=== PATIENT | male | born 1955 | race Hispanic/Latino ===

== ENCOUNTER 2016-12-29 15:38 | Emergency (ER) | payer OTHER ==
[2016-12-29 16:24] LABS: Bilirubin Negative (Negative); Blood, Urine Negative (Negative); Glucose, Urine (Dipstick) Negative (Negative); Ketone, Urine Negative (Negative); Nitrite Negative (Negative); Protein, Urine (Dipstick) Negative (Neg-Trace); Urobilinogen 0.2 mg/dL (0.2-1.0)
[2016-12-29] MEDS ORDERED: Ketorolac Tromethamine 30 MG/ML VIAL ONE (16:44)
== END 2016-12-29 17:07 | disposition home or self-care (01) ==
LOC: SCSER 15:38
DX: M54.5 Low back pain (principal); I10 Essential (primary) hypertension; E11.9 Type 2 diabetes mellitus without complications; F41.9 Anxiety disorder, unspecified; F32.9 Major depressive disorder, single episode, unspecified
CPT/HCPCS: 81003; 96372; J1885

== ENCOUNTER 2018-05-05 15:31 | Emergency (ER) | payer OTHER ==
[2018-05-05] MEDS ORDERED: Ketorolac Tromethamine 30 MG/ML VIAL ONE (16:07)
--- NOTE | 2018-05-05 16:30 | RAD ---
RIGHT SHOULDER THREE VIEWS: History: Fall. Right shoulder injury. FINDINGS: Acromioclavicular and glenohumeral alignment are maintained. With moderate osteophytosis. Fragmented well corticated enthesophytes are present along the lateral margin of the proximal humeral shaft and the upper medial margin. These may be related to chronic or old tendinous avulsion type injuries. No acute fracture, dislocation, or aggressive osseous erosions. IMPRESSION: Degenerative changes of the acromioclavicular and glenohumeral joint and other chronic type findings as detailed above. No acute osseous abnormalities are demonstrated. POS: RAQUEL
== END 2018-05-05 16:27 | disposition home or self-care (01) ==
LOC: SCSER 15:31
DX: S40.011A Contusion of right shoulder, initial encounter (principal); E11.9 Type 2 diabetes mellitus without complications; I10 Essential (primary) hypertension; F41.9 Anxiety disorder, unspecified; F32.9 Major depressive disorder, single episode, unspecified; Z79.899 Other long term (current) drug therapy; Z79.84 Long term (current) use of oral hypoglycemic drugs; W01.0XXA Fall on same level from slipping, tripping and stumbling without subsequent striking against object, initial encounter
CPT/HCPCS: 96372; J1885

== ENCOUNTER 2018-07-28 06:15 | Emergency (ER) | payer OTHER ==
[2018-07-28] MEDS ORDERED: Ondansetron PF 4 MG/2 ML Vial ONE (06:36)
[2018-07-28 06:49] LABS: #Basophils 0.2 thou/uL (0.0-0.2); #Eosinphils 0.4 thou/uL (0.0-0.7); #Lymphocytes 4.7 thou/uL (1.20-3.40); #Neutrophils 5.8 thou/uL (1.40-6.50); %Basophils 1.3 % (0.0-1.0); %Eosinophils 3.7 % (0.0-10.0); %Lymphocytes 38.6 % (21.0-51.0); %Neutrophils 48.3 % (42.0-75.0); Hemoglobin 14.6 g/dL (14.0-18.0); Mean Corpuscular HGB CONC 31.4 g/dL (32.0-36.0); Mean Corpuscular Volume 95.3 fL (78.0-98.0); Mean Platelet Volume 7.6 fL (7.4-10.4); Platelet Count 353 thou/uL (130-400); RBC Distribution Width 12.2 % (11.5-14.5); Red Blood Cell (RBC) Count 4.89 mill/uL (4.70-6.10)
[2018-07-28 07:10] LABS: ALT (SGPT) 21 U/L (8-55); AST (SGOT) 20 U/L (5-34); Albumin 4.8 g/dL (3.5-5.0); Alkaline Phosphatase 106 U/L (40-150); Anion Gap 16 mmol/L (10-20); BUN (Urea Nitrogen) 29 mg/dL (8.4-25.7); Calc. Creatinine Clearance 0 mL/min (70-130); Calcium 10.1 mg/dL (7.8-10.44); Carbon Dioxide 25 mmol/L (22-29); Chloride 101 mmol/L (98-107); Estimated GFR-MDRD 45; Globulin 3.8 g/dL (2.4-3.5); Glucose 144 mg/dL (70-105); Potassium 4.1 mmol/L (3.5-5.1); Protein, Total 8.6 g/dL (6.0-8.3); Sodium 138 mmol/L (136-145)
--- NOTE | 2018-07-28 07:30 | RAD ---
EXAM: Single view of the chest HISTORY: Chest pain COMPARISON: 07/27/2013 FINDINGS: Single view of the chest shows a normal sized cardiomediastinal silhouette. There is no carolyne dence of consolidation, mass, or pleural effusion. Degenerative changes are seen in the spine. IMPRESSION: No evidence of acute cardiopulmonary disease
--- NOTE | 2018-07-31 14:36 | EKG ---
Test Reason : Blood Pressure : / mmHG Vent. Rate : 090 BPM Atrial Rate : 090 BPM P-R Int : 156 ms QRS Dur : 084 ms QT Int : 368 ms P-R-T Axes : 049 -13 082 degrees QTc Int : 450 ms Normal sinus rhythm Normal ECG Confirmed by TOSHA DELUNA D.O. ([id number]), field map editor LEI TSANG ([id number] on 07/31/2018 2:35:56 PM Referred By: Confirmed By:TOSHA DELUNA D.O.
== END 2018-07-28 09:12 | disposition home or self-care (01) ==
LOC: ERS 06:15
DX: K29.70 Gastritis, unspecified, without bleeding (principal); I10 Essential (primary) hypertension; F41.9 Anxiety disorder, unspecified; F32.9 Major depressive disorder, single episode, unspecified; Z79.84 Long term (current) use of oral hypoglycemic drugs; Z79.899 Other long term (current) drug therapy
CPT/HCPCS: 71045; 80053; 84484; 85025; 93005; 96361; 96374; J2405

== ENCOUNTER 2020-01-23 09:59 | Outpatient (CLI) | payer OTHER ==
--- NOTE | 2020-01-23 10:28 | ULT ---
ULTRASOUND ABDOMEN: HISTORY: Right upper quadrant pain FINDINGS: The liver demonstrates increased echogenicity consistent with fatty infiltration. No focal mass or ab normal biliary duct dilatation is seen. The spleen, gallbladder, pancreas, kidneys and visualized portions of the aorta and IVC appear normal. The common duct measures 6mm in diameter. No free fluid is seen. IMPRESSION: Fatty liver.
--- NOTE | 2020-01-23 10:40 | RAD ---
XR Chest Pa Lat STANDARD History: Chest pain Comparison: Radiograph July 2018 Findings: Lungs are mildly hypoinflated with accentuated cardiac silhouette and pulmonary vasculature . Dorsal column stimulator electrode leads project over the lower thoracic spine. No confluent airspace consolidation, pneumothorax or effusion. Old left acromioclavicular injury with ossification of the coracoclavicular ligaments and elevated distal clavicle. Impression: Chronic findings. No acute intrathoracic abnormality.
--- NOTE | 2020-01-23 10:41 | RAD ---
XR Abdomen 1 View/KUB History: Right upper quadrant pain Comparison: None. Findings: Evaluation for free air is limited without an upright examination. Dorsal column stimulator leads project over the mid T9 vertebral body. No abnormal calcifications project over the renal shadows. No acute osseous abnormality. No dilated l oops of large or small bowel. Impression: No acute intra-abdominal abnormality.
== END 2020-01-23 10:00 | disposition home or self-care (01) ==
LOC: BICULT 09:59
PROVIDERS: ATTEND Family Medicine
DX: R07.89 Other chest pain (principal); R10.11 Right upper quadrant pain; K76.0 Fatty (change of) liver, not elsewhere classified
CPT/HCPCS: 71046; 74018; 93975

== ENCOUNTER 2022-07-06 15:58 | Emergency (ER) | payer OTHER ==
[2022-07-06] MEDS ORDERED: Ketorolac Tromethamine 30 MG/ML VIAL ONE (17:04)
[2022-07-06] MEDS ORDERED: predniSONE 20 MG TAB ONE (17:04)
[2022-07-06] MEDS ORDERED: Lidocaine 4% Cream 5 GM TUBE w/ Tegaderm ONE (17:07)
[2022-07-06 17:30] LABS: Bacteria/HPF None Seen HPF (None Seen); Bilirubin Negative (Negative); Blood, Urine Negative (Negative); Clarity Clear (Clear); Glucose, Urine (Dipstick) Normal (Negative); Ketone, Urine Negative (Negative); Leukocyte 25 Leu/uL (Negative); Nitrite Negative (Negative); Protein, Urine (Dipstick) Negative (Neg-Trace); RBC/HPF 0-3 HPF (0-3); Specific Gravity, Urine 1.018 (1.002-1.036); Squamous Epithelial 0-3 HPF (0-3); Urobilinogen Normal mg/dL (Less than 2); WBC/HPF 0-3 HPF (0-3)
[2022-07-06] MEDS ORDERED: Lidocaine 4% Patch TD SCH (17:45)
[2022-07-07] MEDS ORDERED: Transdermal Patch Removal TOP SCH (06:00)
== END 2022-07-06 18:52 | disposition home or self-care (01) ==
LOC: ERS 15:58
DX: M54.42 Lumbago with sciatica, left side (principal); E11.9 Type 2 diabetes mellitus without complications; I10 Essential (primary) hypertension; Z79.899 Other long term (current) drug therapy
CPT/HCPCS: 81003; 81015; 96372; 99283; J1885; J7512

== ENCOUNTER 2022-10-10 01:51 | Emergency (ER) | payer OTHER ==
[2022-10-10] MEDS ORDERED: predniSONE 20 MG TAB ONE (02:16)
[2022-10-10] MEDS ORDERED: Diazepam 5 MG TAB ONE (02:16)
[2022-10-10] MEDS ORDERED: Ketorolac Tromethamine 30 MG/ML VIAL ONE (02:16)
== END 2022-10-10 03:45 | disposition home or self-care (01) ==
LOC: ERS 01:51
DX: M54.50 Low back pain, unspecified (principal); E11.9 Type 2 diabetes mellitus without complications; I10 Essential (primary) hypertension
CPT/HCPCS: 96372; 99283; J1885; J7512

== ENCOUNTER 2025-03-07 10:58 | Outpatient (CLI) | payer OTHER, MEDICAID ==
[2025-03-07 12:09] LABS: #Basophils 0.09 10x3/uL (0.0-0.2); #Eosinophils 0.51 10x3/uL (0.0-0.7); #Monocytes 0.83 10x3/uL (0.11-0.59); #Neutrophils 6.39 10x3/uL (1.40-6.50); %Basophils 0.9 % (0.0-1.0); %Eosinophils 5.1 % (0.0-10.0); %Lymphocytes 21.5 % (21.0-51.0); %Monocytes 8.3 % (0.0-10.0); %Neutrophils 64.0 % (42.0-75.0); Hematocrit 46.4 % (42.0-52.0); Hemoglobin 14.9 g/dL (14.0-18.0); Mean Corpuscular Hemoglobin 29.1 pg (27.0-31.0); Mean Corpuscular Volume 90.6 fL (78.0-98.0); Platelet Count 280 10x3/uL (130-400); Red Blood Cell (RBC) Count 5.12 mill/uL (4.70-6.10); White Blood Cell (WBC) Count 9.99 10x3/uL (4.8-10.8)
[2025-03-07 12:18] LABS: Bacteria/HPF None Seen HPF (None Seen); Glucose, Urine (Dipstick) Greater than 1000 mg/dL (Negative); Leukocyte Negative Leu/uL (Negative); Protein, Urine (Dipstick) 10 mg/dL (Neg-Trace); RBC/HPF 0-3 HPF (0-3); Specific Gravity, Urine 1.036 (1.002-1.036); WBC/HPF None Seen HPF (0-3)
[2025-03-07 12:22] LABS: INR-International Normal Ratio 1.0; PTT 30.9 sec (22.9-36.1); Prothrombin Time 13.7 sec (12.0-14.7)
[2025-03-07 12:48] LABS: Anion Gap 15 mmol/L (10-20); BUN (Urea Nitrogen) 16 mg/dL (8.4-25.7); Calc. Creatinine Clearance 0 mL/min (70-130); Calcium 10.0 mg/dL (7.8-10.44); Carbon Dioxide 26 mmol/L (23-31); Chloride 105 mmol/L (98-107); Glucose 119 mg/dL (80-115); Potassium 3.9 mmol/L (3.5-5.1); Sodium 142 mmol/L (136-145)
== END 2025-03-07 10:59 | disposition home or self-care (01) ==
LOC: LABBT 10:58
PROVIDERS: ATTEND Urology
DX: Z01.818 Encounter for other preprocedural examination (principal); N40.0 Benign prostatic hyperplasia without lower urinary tract symptoms
CPT/HCPCS: 80048; 81001; 85025; 85610; 85730; 86850; 86900; 86901; 87086; 93005; 93010